=== PATIENT | male | born 1985 | race Caucasian/White ===

== ENCOUNTER 2017-03-06 10:52 | Emergency (ER) | payer BC, OTHER ==
[2017-03-06] MEDS ORDERED: Ketorolac 60 MG/2 ML SDV IM ONE (11:13)
--- NOTE | 2017-03-06 11:19 | EDM.PDOC ---
ED HPI GENERAL MEDICAL PROBLEM - General Chief Complaint: Back Pain or Injury Stated Complaint: BACK PAIN Time Seen by Provider: 03/06/17 11:00 Source of Information: Reports: Patient History Limitations: Reports: No Limitations - History of Present Illness INITIAL COMMENTS - FREE TEXT/NARRATIVE: HISTORY AND PHYSICAL: [31-year-old male presenting with low back pain] History of Present Illness: [3 days ago patient was using a shovel and as he done this several into the ground and had experienced pain to his lower back. The pain has not resolved and has gradually worsened. He has not sought medical care anywhere else. ] Patient does report having several injuries to his back 2010 2012 but has not sought out medical care for these previous injuries Review of Systems: As per history of present illness and below otherwise all systems reviewed and negative. Past medical history: As per history of present illness and as reviewed below otherwise noncontributory. Surgical history: As per history of present illness and as reviewed below otherwise noncontributory. Social history: No reported history of drug or alcohol abuse. Family history: As per history of present illness and as reviewed below otherwise noncontributory. Physical exam: Alert and oriented gentleman skin is warm and dry answering questions appropriately HEENT: Atraumatic, normocehpalic, pupils reactive, negative for conjunctival pallor or scleral icterus, mucous membranes moist, throat clear, neck supple, nontender, trachea midline. Lungs: Clear to auscultation, breath sounds equal bilaterally, chest non tender. Heart: S1S2, regular, negative for clicks, rubs, or JVD. Abdomen: Soft, nondistended, nontender. Negative for masses or hepatossplenmegaly. Negative for costovertebral tenderness. patient with muscle spasm to the back offset to the left. Mild tenderness at the right sciatic denies any radiation Pelvis: Stable nontender. Genitourinary: Deferred. Rectal: Deferred Extremities: Atraumatic, negative for cords or calf pain. Neurovascular unremarkable. Neuro: Awake, alert, oriented. Cranial nerves II through XII unremarkable. Cerebellum unremarkable. Motor and sensory unremarkable throughout. Exam nonfocal. Patient denies any relief from the Toradol that was given, he is agreeable to take a muscle relaxant once he is at home Diagnostics: [X-ray lumbar spine] Therapeutics: [Toradol 60 IM] Impression: [Low back pain with muscle spasm] Plan: [Home Referred to physical therapy Follow up with your primary care provider Cyclobenzaprine 3 times a day 10 days will be sent to [facility]] Definitive disposition and diagnosis as appropriate pending reevaluation and review of above. Onset: Sudden Duration: Day(s): Location: Reports: Back Quality: Reports: Ache, Stabbing Severity: Moderate Lower Back Pain Score (Numeric/FACES): 8 - Related Data Allergies Allergy/AdvReac Type Severity Reaction Status Date / Time No Known Allergies Allergy Verified 03/06/17 11:06 Home Meds: Home Meds Cyclobenzaprine [Flexeril] 10 mg PO TID PRN #30 tablet 03/06/17 [Rx] Past Medical History - Past Health History Medical/Surgical History: Denies Medical/Surgical History Endocrine/Metabolic History: Reports: Other (See Below) Other Endocrine/Metabolic History: factor V Social & Family History - Tobacco Use Smoking Status *Q: Current Every Day Smoker Years of Tobacco use: 10 Packs/Tins Daily: 0.5 - Caffeine Use Caffeine Use: Reports: Soda - Recreational Drug Use Recreational Drug Use: No ED ROS GENERAL - Review of Systems Review Of Systems: ROS reveals no pertinent complaints other than HPI. ED EXAM,LOWER BACK PAIN/INJURY - Physical Exam Exam: See Below (See dictation) Course - Vital Signs Last Recorded V/S: Last Vital Signs Temp 36.4 C 03/06/17 11:12 Pulse 69 03/06/17 11:12 Resp 18 03/06/17 11:12 BP 131/76 03/06/17 11:12 Pulse Ox 97 03/06/17 11:12 - Orders/Labs/Meds Meds: Medications Discontinued Medications Generic Name Dose Route Start Last Admin Trade Name Freq PRN Reason Stop Dose Admin Ketorolac Tromethamine 60 mg 03/06/17 11:13 03/06/17 11:22 Toradol IM 03/06/17 11:14 60 mg ONETIME ONE Administration Departure - Departure Time of Disposition: 12:27 Disposition: Home, Self-Care 01 Condition: Good Clinical Impression: Low back pain Qualifiers: Chronicity: acute Back pain laterality: right Sciatica presence: without sciatica Qualified Code(s): M54.5 - Low back pain - Discharge Information Prescriptions: Cyclobenzaprine [Flexeril] 10 mg PO TID PRN #30 tablet PRN Reason: Pain (Mild 1-3) Instructions: Back Pain, Adult, [id number] Referrals: PCP,None [Primary Care Provider] - Forms: ED Department Discharge Additional Instructions: The following information is given to patients seen in the emergency department who are being discharged to home. This information is to outline your options for follow-up care. We provide all patients seen in our emergency department with a follow-up referral. The need for follow-up, as well as the timing and circumstances, are variable depending upon the specifics of your emergency department visit. If you don't have a primary care physician on staff, we will provide you with a referral. We always advise you to contact your personal physician following an emergency department visit to inform them of the circumstance of the visit and for follow-up with them and/or the need for any referrals to a consulting specialist. The emergency department will also refer you to a specialist when appropriate. This referral assures that you have the opportunity for followup care with a specialist. All of these measure are taken in an effort to provide you with optimal care, which includes your followup. Under all circumstances we always encourage you to contact your private physician who remains a resource for coordinating your care. When calling for followup care, please make the office aware that this follow-up is from your recent emergency room visit. If for any reason you are refused follow-up, please contact the [facility] emergency department at and asked to speak to the emergency department charge nurse. Referral has been completed for physical therapy Follow up with your primary care provider as needed and 3 tablets every 8 hours as needed for pain
--- NOTE | 2017-03-06 12:20 | CR ---
EXAMINATION: Lumbar spine HISTORY: Pain COMPARISON: None TECHNIQUE: AP and lateral views FINDINGS: The lumbar spinal alignment appears normal. The vertebral body heights and disc spaces ashley ear well-maintained. The SI joints are symmetric. Bone mineralization is normal. IMPRESSION: Unremarkable lumbar spine.
[2017-03-06 12:48] VITALS: BP 118/72
== END 2017-03-06 12:40 | disposition home or self-care (01) ==
LOC: MW.ED 10:52
DX: M62.830 Muscle spasm of back (principal); F17.210 Nicotine dependence, cigarettes, uncomplicated
CPT/HCPCS: 72100; 96372; 99283; J1885